=== PATIENT | male | born 1940 | race Caucasian/White ===

== ENCOUNTER 2020-09-06 21:58 | Inpatient (IN) | payer MEDICARE ==
[~2020-09-06] VITALS: Ht 180.3 cm; Wt 128.4 kg
[~2020-09-06 21:58] MED LIST: MUPIROCIN22 GM TP
[2020-09-06 22:48] LABS: RED BLOOD COUNT 4.5 M/UL (4.20-5.50); WHITE BLOOD COUNT 7.3 K/UL (4.5-11.0)
[2020-09-07] MEDS ORDERED: PRAVASTATIN SOD40 MG PO (09:51)
[2020-09-07] MEDS ORDERED: COZAAR100 MG PO (09:54)
[2020-09-07] MEDS ORDERED: LISINOPRIL40 MG PO (09:55)
[2020-09-07] MEDS ORDERED: NORVASC5 MG PO (09:55)
[2020-09-07] MEDS ORDERED: CARVEDILOL25 MG PO (09:56)
[2020-09-07] MEDS ORDERED: HYDRALAZINE HCL50 MG PO (09:56)
[2020-09-07] MEDS ORDERED: HYDROCODON-ACE1 EAC6 PO (09:56)
[2020-09-07] MEDS ORDERED: GABAPENTIN300 MG PO (09:57)
[2020-09-07] MEDS ORDERED: ZYRTEC10 MG PO (09:57)
[2020-09-07] MEDS ORDERED: PLAVIX 75 MG TA75 MG PO (09:57)
[2020-09-07] MEDS ORDERED: ESCITALOPRAM OX20 MG PO (09:57)
[2020-09-07] MEDS ORDERED: K-DUR TAB 10 M10 MEQ PO (09:58)
[2020-09-07] MEDS ORDERED: LASIX20 MG PO (09:58)
[2020-09-08 02:19] LABS: BUN/CREATININE RATIO 11 (0-10)
[2020-09-08 08:01] LABS: HEMOGLOBIN 13.8 gm/dl (14.0-17.5); RED BLOOD COUNT 4.52 M/UL (4.20-5.50); WHITE BLOOD COUNT 7.2 K/UL (4.5-11.0)
[2020-09-09 05:09] LABS: HEMOGLOBIN 13.1 gm/dl (14.0-17.5); RED BLOOD COUNT 4.28 M/UL (4.20-5.50); WHITE BLOOD COUNT 6.6 K/UL (4.5-11.0)
[2020-09-09 05:33] LABS: BUN/CREATININE RATIO 9 (0-10)
[2020-09-10 08:33] LABS: HEMOGLOBIN 14.6 gm/dl (14.0-17.5); RED BLOOD COUNT 4.68 M/UL (4.20-5.50)
[2020-09-10 08:58] LABS: BUN/CREATININE RATIO 9 (0-10)
[2020-09-11 05:05] LABS: WHITE BLOOD COUNT 6.1 K/UL (4.5-11.0)
[2020-09-11 05:08] LABS: HEMOGLOBIN 12.5 gm/dl (14.0-17.5); RED BLOOD COUNT 4.13 M/UL (4.20-5.50)
[2020-09-11 05:27] LABS: BUN/CREATININE RATIO 11 (0-10)
[2020-09-11] MEDS ORDERED: AMIODARONE HCL200 MG PO (10:01)
[2020-09-11] MEDS ORDERED: FLAGYL500 MG PO (10:01)
[2020-09-11] MEDS ORDERED: ELIQUIS 5 MG TAB5 MG PO (10:01)
[2020-09-11] MEDS ORDERED: LEVOFLOXACIN500 MG PO (10:01)
[2020-09-11] MEDS ORDERED: LOPRESSOR 25 MG25 MG PO (10:01)
[2020-09-11] MEDS ORDERED: DILTIAZEM 12HR90 MG PO (10:01)
[2020-09-11] MEDS ORDERED: LASIX20 MG PO (10:01)
== END 2020-09-11 14:30 | disposition home or self-care (01) | DRG 280 ==
LOC: ER1 21:58 → PROG CARE 09-07 01:55 → CDU 09-07 01:55 → PROG CARE 09-07 16:47
PROVIDERS: Emergency Medicine; Internal Medicine; ADMIT Internal Medicine
PROC: B24BZZ4 Ultrasonography of Heart with Aorta, Transesophageal (ICD-10-PCS; principal; 2020-09-07)
PROC: 5A2204Z Restoration of Cardiac Rhythm, Single (ICD-10-PCS; 2020-09-07)
DX: I21.4 Non-ST elevation (NSTEMI) myocardial infarction (principal); J96.01 Acute respiratory failure with hypoxia; J96.02 Acute respiratory failure with hypercapnia; I50.23 Acute on chronic systolic (congestive) heart failure; J18.9 Pneumonia, unspecified organism; N17.9 Acute kidney failure, unspecified; I42.9 Cardiomyopathy, unspecified; E87.2 Acidosis; Z20.822 Contact with and (suspected) exposure to COVID-19; K52.9 Noninfective gastroenteritis and colitis, unspecified; E86.0 Dehydration; E66.9 Obesity, unspecified; I48.0 Paroxysmal atrial fibrillation; I10 Essential (primary) hypertension; I08.2 Rheumatic disorders of both aortic and tricuspid valves; E78.5 Hyperlipidemia, unspecified; N40.0 Benign prostatic hyperplasia without lower urinary tract symptoms; I95.9 Hypotension, unspecified; K81.9 Cholecystitis, unspecified; Z79.01 Long term (current) use of anticoagulants; Z99.3 Dependence on wheelchair; Z88.1 Allergy status to other antibiotic agents; Z88.0 Allergy status to penicillin; Z90.49 Acquired absence of other specified parts of digestive tract; Z87.891 Personal history of nicotine dependence
CPT/HCPCS: ECHO; 0240U; 36415; 36600; 71045; 76705; 78452; 80048; 80053; 81001; 82550; 82553; 82803; 83605; 83690; 83735; 83880; 84439; 84443; 84484; 85025; 85027; 85610; 85730; 86140; 87040; 93005; 93017; 93306; 93312; 93320; 94760; 96374; 99285; A9502; A9537; J1644; J1956; J2250; J2785; J3010; Q9967

== ENCOUNTER 2021-03-16 21:29 | Inpatient (IN) | payer MEDICARE ==
[~2021-03-16] VITALS: Ht 175.3 cm; Wt 141.1 kg
[~2021-03-16 21:29] MED LIST changes: +AMIODARONE HCL200 MG PO; +CARVEDILOL25 MG PO; +COZAAR100 MG PO; +DILTIAZEM 12HR90 MG PO; +ELIQUIS 5 MG TAB5 MG PO; +ESCITALOPRAM OX20 MG PO; +FLAGYL500 MG PO; +GABAPENTIN300 MG PO; +HYDRALAZINE HCL50 MG PO; +HYDROCODON-ACE1 EAC6 PO; +K-DUR TAB 10 M10 MEQ PO; +LASIX20 MG PO; +LEVOFLOXACIN500 MG PO; +LISINOPRIL40 MG PO; +LOPRESSOR 25 MG25 MG PO; +NORVASC5 MG PO; +PLAVIX 75 MG TA75 MG PO; +PRAVASTATIN SOD40 MG PO; +ZYRTEC10 MG PO
[2021-03-16 23:42] LABS: HEMOGLOBIN 12.8 gm/dl (14.0-17.5); RED BLOOD COUNT 4.41 M/UL (4.20-5.50); WHITE BLOOD COUNT 3.9 K/UL (4.5-11.0)
[2021-03-17 00:09] LABS: BUN/CREATININE RATIO 13 (0-10)
[2021-03-17] MEDS ORDERED: COZAAR100 MG PO (10:50)
[2021-03-17] MEDS ORDERED: AMIODARONE HCL200 MG PO (10:50)
[2021-03-17] MEDS ORDERED: DILTIAZEM 12HR90 MG PO (10:51)
[2021-03-17] MEDS ORDERED: FUROSEMIDE40 MG PO (10:51)
[2021-03-17] MEDS ORDERED: POTASSIUM CITR10 ME1 PO (11:17)
[2021-03-17] MEDS ORDERED: ZYRTEC10 MG PO (11:19)
[2021-03-18 03:28] LABS: HEMOGLOBIN 13.5 gm/dl (14.0-17.5); RED BLOOD COUNT 4.65 M/UL (4.20-5.50); WHITE BLOOD COUNT 3.1 K/UL (4.5-11.0)
[2021-03-18 04:00] LABS: BUN/CREATININE RATIO 14 (0-10)
[2021-03-19 07:18] LABS: HEMOGLOBIN 13.4 gm/dl (14.0-17.5); RED BLOOD COUNT 4.67 M/UL (4.20-5.50); WHITE BLOOD COUNT 3.4 K/UL (4.5-11.0)
[2021-03-19 07:40] LABS: BUN/CREATININE RATIO 21 (0-10)
[2021-03-20 03:53] LABS: HEMOGLOBIN 13.7 gm/dl (14.0-17.5); RED BLOOD COUNT 4.82 M/UL (4.20-5.50); WHITE BLOOD COUNT 4.1 K/UL (4.5-11.0)
[2021-03-20 04:21] LABS: BUN/CREATININE RATIO 21 (0-10)
[2021-03-21 09:29] LABS: HEMOGLOBIN 14.4 gm/dl (14.0-17.5); RED BLOOD COUNT 4.99 M/UL (4.20-5.50); WHITE BLOOD COUNT 4.1 K/UL (4.5-11.0)
[2021-03-21 09:50] LABS: BUN/CREATININE RATIO 20 (0-10)
[2021-03-22 04:52] LABS: HEMOGLOBIN 14.9 gm/dl (14.0-17.5); RED BLOOD COUNT 5.19 M/UL (4.20-5.50); WHITE BLOOD COUNT 4.2 K/UL (4.5-11.0)
[2021-03-22 05:12] LABS: BUN/CREATININE RATIO 22 (0-10)
[2021-03-23 05:23] LABS: HEMOGLOBIN 14.9 gm/dl (14.0-17.5); RED BLOOD COUNT 5.11 M/UL (4.20-5.50)
[2021-03-23 05:38] LABS: WHITE BLOOD COUNT 5.5 K/UL (4.5-11.0)
[2021-03-24 06:37] LABS: HEMOGLOBIN 15.5 gm/dl (14.0-17.5); RED BLOOD COUNT 5.24 M/UL (4.20-5.50); WHITE BLOOD COUNT 5.4 K/UL (4.5-11.0)
[2021-03-24 06:56] LABS: BUN/CREATININE RATIO 27 (0-10)
[2021-03-24] MEDS ORDERED: DECADRON6 MG PO (09:20)
== END 2021-03-24 13:17 | disposition home health service (06) | DRG 177 ==
LOC: ER1 21:29 → 3 EAST 03-17 08:24 → MED SURG 4 03-17 08:24 → CDU 03-17 08:24 → 3 EAST 03-17 22:19 → MED SURG 4 03-18 21:38
PROVIDERS: Internal Medicine; Physician Assistant; Physician Assistant Medical; ADMIT Internal Medicine
PROC: XW033E5 Introduction of Remdesivir Anti-infective into Peripheral Vein, Percutaneous Approach, New Technology Group 5 (ICD-10-PCS; 2021-03-17)
PROC: 8E0ZXY6 Isolation (ICD-10-PCS; 2021-03-17)
PROC: 5A0955A Assistance with Respiratory Ventilation, Greater than 96 Consecutive Hours, High Flow/Velocity Cannula (ICD-10-PCS; 2021-03-17)
PROC: 3E0333Z Introduction of Anti-inflammatory into Peripheral Vein, Percutaneous Approach (ICD-10-PCS; principal; 2021-03-23)
DX: U07.1 COVID-19 (principal); J96.01 Acute respiratory failure with hypoxia; J12.82 Pneumonia due to coronavirus disease 2019; I50.22 Chronic systolic (congestive) heart failure; I42.9 Cardiomyopathy, unspecified; Z68.42 Body mass index [BMI] 45.0-49.9, adult; E66.01 Morbid (severe) obesity due to excess calories; E78.5 Hyperlipidemia, unspecified; I11.0 Hypertensive heart disease with heart failure; G89.29 Other chronic pain; I48.0 Paroxysmal atrial fibrillation; M54.9 Dorsalgia, unspecified; Z79.01 Long term (current) use of anticoagulants; I25.2 Old myocardial infarction; Z98.890 Other specified postprocedural states; Z88.1 Allergy status to other antibiotic agents; Z88.0 Allergy status to penicillin; Z87.891 Personal history of nicotine dependence; Z90.49 Acquired absence of other specified parts of digestive tract; Z74.01 Bed confinement status; Z99.3 Dependence on wheelchair; Z99.81 Dependence on supplemental oxygen
CPT/HCPCS: 36415; 36600; 71045; 80048; 80053; 80076; 82550; 82553; 82728; 82803; 83605; 83615; 83874; 83880; 84484; 85025; 85027; 85379; 85610; 85730; 86140; 93005; 94640; 94664; 94760; 96374; 97110-GP-CQ; 97116; 97116-GP-CQ; 97161; 97530-GP-CQ; 99285; G0378; J0248; J1100; J1205; J1940; J7030; Q9967; U0002